=== PATIENT | female | born 1985 | race American Indian/Alaskan Native ===

== ENCOUNTER 2019-08-03 16:49 | Emergency (ER) | payer MEDICAID ==
--- NOTE | 2019-08-03 18:44 | Emergency Department Report ---
Blank Doc - Documentation Documentation: Out of lithium and zyprexa. Reports to visual hallucinations. his initial assessment/diagnostic orders/clinical plan/treatment(s) is/are subject to change based on patient's health status, clinical progression and re- assessment by fellow clinical providers in the ED. Further treatment and workup at subsequent clinical providers discretion. Patient/guardians urged not to elope from the ED as their condition may be serious if not clinically assessed and managed. Initial orders include: Plan Labs and mental health evaluation
--- NOTE | 2019-08-03 22:25 | Emergency Department Report ---
ED Psych HPI - General Chief Complaint: Psych Stated Complaint: MED REFILL Time Seen by Provider: 08/03/19 18:31 Source: patient Mode of arrival: Ambulatory - History of Present Illness Initial Comments: This is a 33-year-old female nontoxic, well nourished in appearance, no acute signs of distress presents to the ED with c/o of depression with audio and visual hallucinations. Patient stated she has been out of her medications for about 2 months. Patient stated wants to be admitted for psych hospital because it will get worse. Patient denies any homicidal ideation. Patient denies any fever, chills, nausea, vomiting, chest pain, shortness of breath, headache or stiff neck. Patient otherwise denies any symptoms. Denies any alcohol or drug consumption. Patient denies any allergies. MD Complaint: feels depressed, other (visual hallucinations) -: month(s) Associated Psychiatric Symptoms: depression, visual hallucinations History of same: Yes Quality: constant Improves With: none Worsens With: none Associated Symptoms: denies other symptoms. denies: confusion, headache, shortness of breath, nausea, vomiting, syncope, insomnia - Related Data Allergies Allergy/AdvReac Type Severity Reaction Status Date / Time No Known Allergies Allergy Unverified 08/03/19 16:52 ED Review of Systems ROS: Stated complaint: MED REFILL Other details as noted in HPI Constitutional: denies: chills, fever Eyes: denies: eye pain, eye discharge, vision change ENT: denies: ear pain, throat pain Respiratory: denies: cough, shortness of breath, wheezing Cardiovascular: denies: chest pain, palpitations Endocrine: no symptoms reported Gastrointestinal: denies: abdominal pain, nausea, diarrhea Genitourinary: denies: urgency, dysuria, discharge Musculoskeletal: denies: back pain, joint swelling, arthralgia Skin: denies: rash, lesions Neurological: denies: headache, weakness, paresthesias Psychiatric: depression, visual hallucinations. denies: anxiety, auditory hallucinations, homicidal thoughts, suicidal thoughts Hematological/Lymphatic: denies: easy bleeding, easy bruising ED Past Medical Hx - Past Medical History Hx Psychiatric Treatment: Yes (BIPOLAR SCHIZPHORENIC) - Surgical History Additional Surgical History: NONE ED Physical Exam - General Limitations: No Limitations General appearance: alert, in no apparent distress - Head Head exam: Present: atraumatic, normocephalic - Neck Neck exam: Present: normal inspection, full ROM. Absent: tenderness, meningismus, lymphadenopathy - Respiratory Respiratory exam: Present: normal lung sounds bilaterally. Absent: respiratory distress - Cardiovascular Cardiovascular Exam: Present: regular rate, normal rhythm - GI/Abdominal GI/Abdominal exam: Present: soft, normal bowel sounds. Absent: distended, tenderness - Extremities Exam Extremities exam: Present: normal inspection, full ROM - Back Exam Back exam: Present: normal inspection, full ROM. Absent: tenderness, CVA tenderness (R), CVA tenderness (L), muscle spasm, paraspinal tenderness, vertebral tenderness, rash noted - Neurological Exam Neurological exam: Present: alert, oriented X3, normal gait - Psychiatric Psychiatric exam: Present: depressed, anxious, manic. Absent: agitated, flat affect, homicidal ideation, suicidal ideation ED Course - Reevaluation(s) Reevaluation #1: 08/03/19 22:24 Patient is speaking in full sentences with no signs of distress noted. ED Medical Decision Making - Medical Decision Making This is a 33-year-old female that presents with visual hallucinations and depression. Patient is currently stable and was examined by me. Patient has been placed on 1013 and patient to be examined and evaluated by psychiatrist. Patient will remain in the ER until cleared by psychiatry. At time of admission, the patient does not seem toxic or ill in appearance. No acute signs of distress noted. Patient agrees to admission treatment plan of care. No further questions noted by the patient. Critical care attestation.: If time is entered above; I have spent that time in minutes in the direct care of this critically ill patient, excluding procedure time. ED Disposition Clinical Impression: Visual hallucinations Depression Qualifiers: Depression Type: unspecified Qualified Code(s): F32.9 - Major depressive disorder, single episode, unspecified Disposition: DC/TX-65 PSY HOSP/PSY UNIT Is pt being admited?: No Condition: Stable
[2019-08-03 23:19] LABS: Hematocrit 38.2 % (30.3-42.9); Hemoglobin 13.1 gm/dl (10.1-14.3); Mean Corpuscular HGB Conc 34 % (30-34); Mean Corpuscular Volume 80 fl (79-97); Platelet Count 306 K/mm3 (140-440); Red Blood Count 4.76 M/mm3 (3.65-5.03); Red Cell Distribution Width 15.8 % (13.2-15.2)
[2019-08-03 23:39] LABS: BUN/Creatinine Ratio 11; Blood Urea Nitrogen 8 mg/dL (7-17); Calcium 9.4 mg/dL (8.4-10.2)
[2019-08-03 23:40] LABS: Hemolysis Index 5
[2019-08-04 01:15] LABS: Bacteria,Urine 1+ /HPF (Negative); Bilirubin,Urine NEG (Negative); Blood,Urine MOD (Negative); Calcium Oxalate Crystals,Urine FEW; Color,Urine Yellow (Yellow); Mucus,Urine 2+ /HPF; Urobilinogen,Urine < 2.0 mg/dL (<2.0)
[2019-08-04 01:21] LABS: Amphetamine Screen,Urine PRESUMPTIVE NEGATIVE; Benzodiazepines Screen,Urine PRESUMPTIVE NEGATIVE; Cocaine Screen,Urine PRESUMPTIVE NEGATIVE; Methadone Screen,Urine PRESUMPTIVE NEGATIVE; Opiate Screen,Urine PRESUMPTIVE NEGATIVE
[2019-08-04 01:46] LABS: Cannabinoid Screen,Urine PRESUMPTIVE POSITIVE
[2019-08-04 03:24] LABS: Basophils % (Manual) 0 % (0.0-1.8); Total Cells Counted 100
[2019-08-04 03:25] LABS: Platelet Estimate Consistent w Auto; Target Cells 1+
--- NOTE | 2019-08-04 09:43 | Consultation ---
History of Present Illness - Reason for Consult Consult date: 08/04/19 Reason for consult: Mental Health Evaluation Requesting physician: MAIDA CALDERON - Chief Complaint Chief complaint: "I am out of my meds" - History of Present Psychiatric Illness 33 y.o. AA female who presented to the ER for AH's. Today the patient was calm, but disorganized during the assessment. She had to be redirected several times to keep her on topic. Her answers to most questions were nonsensical. She stated that she haven't been complaint with her psy medication for several months. Overall, the patient was a poor historian. She denies SI/HI's. Medications and Allergies Allergies Allergy/AdvReac Type Severity Reaction Status Date / Time No Known Allergies Allergy Unverified 08/03/19 16:52 Past psychiatric history - Past Medical History Past Medical History: No medical history Past Surgical History: No surgical history - past Psychiatric treatment and history psychiatric treatment history: Several inpatient psy settings in the past per the patient. Denies a fam psy hx. - Social History Social history: other (Unable to obtain) Mental Status Exam - Vital signs Last Vital Signs Temp 99 F 08/04/19 07:40 Pulse 86 08/04/19 07:40 Resp 18 08/04/19 07:40 BP 131/92 08/04/19 07:40 Pulse Ox 97 08/04/19 07:40 - Exam Narrative exam: MSE: Appearance: disheveled Behavior: regular eye contact Speech: regular rate and tone Mood: "okay" Affect: congruent to mood Thought Process: disorganized Thought Content: denies SI/HI's and AVH's, some delusional Motor Activity: sitting in a chair Cognition: A/O x 3 Insight: poor Judgment: poor Results Result Diagrams: 08/03/19 23:06 08/03/19 23:06 Abnormal lab results 08/03/19 08/03/19 08/03/19 Range/Units 23:06 23:06 23:06 WBC 13.2 H (4.5-11.0) K/mm3 RDW 15.8 H (13.2-15.2) % Monocytes # (Manual) 0.9 H (0.0-0.8) K/mm3 Glucose 116 H (65-100) mg/dL U Epithel Cells (Auto) (0-13.0) /HPF Salicylates < 0.3 L (2.8-20.0) mg/dL Acetaminophen (10.0-30.0) ug/mL 08/03/19 08/04/19 Range/Units 23:06 00:15 WBC (4.5-11.0) K/mm3 RDW (13.2-15.2) % Monocytes # (Manual) (0.0-0.8) K/mm3 Glucose (65-100) mg/dL U Epithel Cells (Auto) 15.0 H (0-13.0) /HPF Salicylates (2.8-20.0) mg/dL Acetaminophen < 5.0 L (10.0-30.0) ug/mL All other labs normal. Assessment and Plan Assessment and plan: Impression: Unspecified Psychosis. Cannabis Use DO. Today the patient was calm, but disorganized during the assessment. UDS was negative DDx: Bipolar DO with psychosis, Schizophrenia, Substance Induced Psychosis Recommendation/Plan: Continue 1013. Dispo: The patient was accepted at [facility] for inpatient psy services. Will staff with Dr Schuyler Galaviz.
[2019-08-04 13:22] VITALS: BP 144/99
== END 2019-08-04 16:10 ==
LOC: ED 16:49
DX: F29 Unspecified psychosis not due to a substance or known physiological condition (principal); F31.9 Bipolar disorder, unspecified; F20.9 Schizophrenia, unspecified; F12.10 Cannabis abuse, uncomplicated
CPT/HCPCS: 36415; 80048; 80307; 80320; 81001; 85007; 85025; G0480

== ENCOUNTER 2020-01-05 16:39 | Emergency (ER) | payer MEDICAID ==
--- NOTE | 2020-01-05 17:01 | Event Note ---
ED Screening Note ED Screening Note: 34 yo female brought by EMS from [facility] with possible syncope and abnormal behavior. This initial assessment/diagnostic orders/clinical plan/treatment(s) is/are subject to change based on patients health status, clinical progression and re- assessment by fellow clinical providers in the ED. Further treatment and workup at subsequent clinical providers discretion. Patient/guardian urged not to elope from the ED as their condition may be serious if not clinically assessed and managed. Initial orders include: ekg labs
[2020-01-05 17:40] LABS: Basophils # (Auto) 0.1 K/mm3 (0.0-0.1); Basophils % (Auto) 0.5 % (0.0-1.8); Eosinophils # (Auto) 0.2 K/mm3 (0.0-0.4); Eosinophils % (Auto) 1.7 % (0.0-4.3); Hematocrit 37.3 % (30.3-42.9); Hemoglobin 12.7 gm/dl (10.1-14.3); Lymphocytes # (Auto) 3.1 K/mm3 (1.2-5.4); Lymphocytes % (Auto) 28.4 % (13.4-35.0); Mean Corpuscular HGB Conc 34 % (30-34); Mean Corpuscular Volume 84 fl (79-97); Monocytes # (Auto) 1.3 K/mm3 (0.0-0.8); Monocytes % (Auto) 11.7 % (0.0-7.3); Platelet Count 226 K/mm3 (140-440); Red Blood Count 4.46 M/mm3 (3.65-5.03); Red Cell Distribution Width 15.8 % (13.2-15.2)
[2020-01-05 18:01] LABS: Alanine Aminotransferase 15 units/L (7-56); Albumin 3.5 g/dL (3.9-5); BUN/Creatinine Ratio 14; Blood Urea Nitrogen 10 mg/dL (7-17); Calcium 9.1 mg/dL (8.4-10.2); Hemolysis Index 5
--- NOTE | 2020-01-06 06:12 | Emergency Department Report ---
ED Psych HPI - General Chief Complaint: Psych Stated Complaint: SYNCOPY Time Seen by Provider: 01/05/20 23:43 Source: patient Mode of arrival: Ambulatory - History of Present Illness Initial Comments: patient was brought to ER with psychosis, not cooperating with H and P. Appears dishaveled. states she is hearing voices. no si, no hi. - Related Data Allergies Allergy/AdvReac Type Severity Reaction Status Date / Time No Known Allergies Allergy Unverified 08/03/19 16:52 ED Review of Systems ROS: Stated complaint: SYNCOPY Other details as noted in HPI Comment: Unobtainable due to pts medical conditions ED Past Medical Hx - Past Medical History Hx Psychiatric Treatment: Yes (BIPOLAR SCHIZPHORENIC) - Surgical History Past Surgical History?: Yes Additional Surgical History: NONE ED Physical Exam - General Limitations: No Limitations General appearance: alert, in no apparent distress - Head Head exam: Present: atraumatic, normocephalic - Eye Eye exam: Present: normal appearance - ENT ENT exam: Present: mucous membranes moist - Neck Neck exam: Present: normal inspection - Respiratory Respiratory exam: Present: normal lung sounds bilaterally. Absent: respiratory distress - Cardiovascular Cardiovascular Exam: Present: regular rate, normal rhythm. Absent: systolic murmur, diastolic murmur, rubs, gallop - GI/Abdominal GI/Abdominal exam: Present: soft, normal bowel sounds - Extremities Exam Extremities exam: Present: normal inspection - Back Exam Back exam: Present: normal inspection - Psychiatric Psychiatric exam: Present: depressed, agitated, anxious, flat affect - Skin Skin exam: Present: warm, dry, intact, normal color. Absent: rash ED Course Vital Signs 01/05/20 01/06/20 01/06/20 23:37 00:15 02:00 Temperature 98.2 F 98.3 F Pulse Rate 103 H 99 H Respiratory 18 18 18 Rate Blood Pressure 152/89 [Left] Blood Pressure 128/95 [Right] O2 Sat by Pulse 100 99 100 Oximetry ED Medical Decision Making - Lab Data Result diagrams: 01/05/20 17:24 01/05/20 17:24 Critical care attestation.: If time is entered above; I have spent that time in minutes in the direct care of this critically ill patient, excluding procedure time. ED Disposition Clinical Impression: Acute psychosis Disposition: DC-01 TO HOME OR SELFCARE Is pt being admited?: No Does the pt Need Aspirin: No Condition: Stable Referrals: PRIMARY CARE,MD [Primary Care Provider] - 3-5 Days
[2020-01-06 08:32] LABS: Bilirubin,Urine NEG (Negative); Blood,Urine NEG (Negative); Calcium Oxalate Crystals,Urine 1+; Color,Urine Straw (Yellow); Mucus,Urine FEW /HPF; Protein,Urine <15 mg/dL mg/dL (Negative); Urobilinogen,Urine < 2.0 mg/dL (<2.0)
[2020-01-06 08:39] LABS: Amphetamine Screen,Urine PRESUMPTIVE NEGATIVE; Benzodiazepines Screen,Urine PRESUMPTIVE NEGATIVE; Cannabinoid Screen,Urine PRESUMPTIVE NEGATIVE; Methadone Screen,Urine PRESUMPTIVE NEGATIVE; Opiate Screen,Urine PRESUMPTIVE NEGATIVE
[2020-01-06 08:42] LABS: HCG Qualitative,Urine Negative (Negative)
[2020-01-06 09:17] LABS: Cocaine Screen,Urine PRESUMPTIVE POSITIVE
[2020-01-06] MEDS ORDERED: ACETAMINOPHEN 325 MG TAB ONE (22:20)
[2020-01-06] MEDS ORDERED: ZIPRASIDONE MESYLATE 20 MG VIAL IM ONE ×2 (23:09→23:17)
[2020-01-06] MEDS ORDERED: LORazepam 2 MG/ML VIAL ONE (23:09)
[2020-01-06] MEDS ORDERED: diphenhydrAMINE 50 MG/ML VIAL ONE (23:09)
[2020-01-06] MEDS ORDERED: LORazepam 2 MG/ML VIAL IV ONE (23:17)
[2020-01-06] MEDS ORDERED: diphenhydrAMINE 50 MG/ML VIAL IV ONE (23:17)
--- NOTE | 2020-01-07 10:12 | Consultation ---
History of Present Illness - Reason for Consult Consult date: 01/07/20 Reason for consult: Psychotic - Chief Complaint Chief complaint: Paranoid - History of Present Psychiatric Illness The patient is a 34yo female with history of Schizoaffective disorder. She presents psychotic, paranoid, disorganized, confused and agitated. Patient is disorganized and unable to give reliable history. Per MENTAL HEALTH ASSESSMENT: Pt is a 34 year old female who was brought to the ED due to acting abnormally outside of a [employer]. Pt has no identified supports/family listed and the pt can provide none at this time. Pt carries a diagnosis of Schizoaffective Bipolar type. Pt has no current outpatient providers, but was previously invovled in an ACT team. Pt has not been compliant with her medications which she reports as, "Zyprexa, depakote, haldol, Seroquel, Vystaril and Cogentin." Pt has been admitted to [facility] in the past. Pt presents with altered mental state. Pt is oriented to self and situation. Pt is responding to internal visual and auditory hallucinations. Pt has poor concentration, poor attention and poor memory. Pt has angry anxious mood with congruent affect and loud pressured speech. Pt is disheveled in appearance and has poor hygiene. Pt has limited judgment and poor insight. "I'm gonna kill myself," pt yelled. Pt stated, "I try everyday to kill myself." Pt was guarded and irritable. Pt provided no information about hx of attempts. "I'm gonna kill everyone I see." Pt gave no information about how she would act on this and was not willing to provide details. Pt denies substance use; although, pt's tox was positive for cocaine. Pt reports she has no where to live; although, the pt gave the name and number of a workday manager in the area ([address]ady [phone]). Unable to verify. Pt was picked up at a [employer]. PAST PSYCHIATRIC HISTORY: Diagnoses: Schizoaffective disorder Family Psychiatric History None reported or documented SOCIAL HISTORY RACQUEL ROS: Constitutional: Negative for weight loss ENT: Negative for stridor Respiratory: Negative for cough or hemoptysis All other systems reviewed and are negative MENTAL STATUS General Appearance and Behavior: age appropriate, good eye contact and uncooperative with questioning Cooperation: Uncooperative Psychomotor Behavior: within normal limits Mood: OK Affect and affective range: Congruent with stated mood Thought Process: disorganized Thought Content: Paranoid Speech: Normal volume and Regular rate and rhythm Intellectual Functioning Average Suicidal Ideation: Denies SI Homicidal Ideation: Denies HI Impulse Control: intact Insight and Judgment: impaired insight and judgment Memory: Normal Attention: Normal Orientation: alert and oriented Diagnosis: Schizoaffective disorder, Bipolar type RECOMMENDATIONS MEDICATIONS: Depakote 500mg bid, Haldol 5mg bid and Cogentin 0.5mg bid CURRICULUM COUNSELOR: Yes DISPOSITION: Acute inpatient psychiatric hospitalization when medically stable LEGAL STATUS: 1013 FOLLOW-UP: Will follow I have reviewed this treatment plan, including potential risks and benefits of medications, with the patient and/or family members and relevant hospital providers. Please contact with any questions and/or concerns. Medications and Allergies Allergies Allergy/AdvReac Type Severity Reaction Status Date / Time No Known Allergies Allergy Verified 01/06/20 22:21 Mental Status Exam - Vital signs Last Vital Signs Temp 97.6 F 01/07/20 07:00 Pulse 101 H 01/07/20 07:00 Resp 16 01/07/20 07:00 BP 127/85 01/07/20 07:00 Pulse Ox 99 01/07/20 07:00 Results Result Diagrams: 01/05/20 17:24 01/05/20 17:24 All other labs normal.
[2020-01-07] MEDS: BENZTROPINE 1 MG TAB PO SCH ×2 (12:17→22:35)
[2020-01-07] MEDS: DIVALPROEX ER 500 MG TAB PO SCH ×2 (12:19→22:35)
[2020-01-07] MEDS: HALOPERIDOL 5 MG TAB PO SCH ×2 (12:19→22:36)
[2020-01-08] MEDS: DIVALPROEX ER 500 MG TAB PO SCH ×2 (10:40→21:51)
[2020-01-08] MEDS: HALOPERIDOL 5 MG TAB PO SCH ×2 (10:40→21:51)
[2020-01-08] MEDS: BENZTROPINE 1 MG TAB PO SCH ×2 (10:40→21:52)
--- NOTE | 2020-01-08 11:29 | Progress Note ---
Subjective - Reason for Consult Consult date: 01/08/20 Reason for consult: Psych follow up - Chief Complaint Chief complaint: I am fine SUBJECTIVE: Patient is alert, fully oriented, calm and pleasant. She admits to have been using Cocaine leading to her being confused and paranoid. She is able to think clearly today and completely denies SI/HI/AVH/Paranoia. She wants to be discharged home and she feels safe being discharged. ROS: Constitutional: Negative for weight loss ENT: Negative for stridor Respiratory: Negative for cough or hemoptysis All other systems reviewed and are negative MENTAL STATUS General Appearance and Behavior: age appropriate, good eye contact and cooperative with questioning Cooperation: cooperative Psychomotor Behavior: within normal limits Mood: OK Affect and affective range: Congruent with stated mood Thought Process: linear and organized Thought Content: normal Speech: Normal volume and Regular rate and rhythm Intellectual Functioning Average Suicidal Ideation: Denies SI Homicidal Ideation: Denies HI Impulse Control: intact Insight and Judgment: impaired insight and judgment Memory: Normal Attention: Normal Orientation: alert and oriented Diagnosis: Cocaine induced psychosis Schizoaffective disorder, Bipolar type RECOMMENDATIONS MEDICATIONS: Depakote 500mg bid, Haldol 5mg bid and Cogentin 0.5mg bid HEDIS ABSTRACTOR: n/a DISPOSITION: No indication for acute inpatient psychiatric hospitalization at present time LEGAL STATUS: 1013 rescinded FOLLOW-UP: Will follow I have reviewed this treatment plan, including potential risks and benefits of medications, with the patient and/or family members and relevant hospital providers. Please contact with any questions and/or concerns. Mental Status Exam - Vital signs Last Vital Signs Temp 97.7 F 01/08/20 08:17 Pulse 103 H 01/08/20 08:17 Resp 18 01/08/20 08:39 BP 139/97 01/08/20 08:17 Pulse Ox 100 01/08/20 08:17
[2020-01-08] MEDS ORDERED: ZIPRASIDONE MESYLATE 20 MG VIAL IM ONE ×2 (13:05→13:11)
[2020-01-08] MEDS ORDERED: WATER FOR INJ Sterile (PF) 10 ML ONE (13:05)
[2020-01-09] MEDS: LORazepam 2 MG/ML VIAL IM PRN ×2 (01:30→23:45)
[2020-01-09] MEDS: HALOPERIDOL LACTATE 5 MG/1 ML INJ IM PRN ×2 (01:30→23:45)
[2020-01-09] MEDS: HALOPERIDOL 5 MG TAB PO SCH ×2 (10:55→23:18)
[2020-01-09] MEDS: BENZTROPINE 1 MG TAB PO SCH ×2 (10:55→23:18)
[2020-01-09] MEDS: DIVALPROEX ER 500 MG TAB PO SCH ×2 (10:56→23:18)
--- NOTE | 2020-01-09 12:08 | Progress Note ---
Subjective - Reason for Consult Consult date: 01/09/20 Reason for consult: Psych follow up - Chief Complaint Chief complaint: Not fine SUBJECTIVE: Patient was agitated and required prn medications, hence her discharged was cancelled yesterday. She continues to be agitated and disorganized. Per Nursing report: pt has displayed aggressive behaviors, yelling at staff, saying threatening statements such as "bitch Ill kill you...fucking bitch shut the fuck up and leave me the fuck alone..."Pt disruptively singing at the top of her lungs belligerent lyrics as well as slammed her door closed repeatedly when staff opens doors to continue monitoring. ROS: Constitutional: Negative for weight loss ENT: Negative for stridor Respiratory: Negative for cough or hemoptysis All other systems reviewed and are negative MENTAL STATUS General Appearance and Behavior: age appropriate, good eye contact and uncooperative with questioning Cooperation: uncooperative Psychomotor Behavior: within normal limits Mood: OK Affect and affective range: Congruent with stated mood Thought Process: linear and organized Thought Content: Paranoid, AH Speech: Normal volume and Regular rate and rhythm Intellectual Functioning Average Suicidal Ideation: Denies SI Homicidal Ideation: Denies HI Impulse Control: intact Insight and Judgment: impaired insight and judgment Memory: Normal Attention: Normal Orientation: alert and oriented Diagnosis: Cocaine induced psychosis Schizoaffective disorder, Bipolar type RECOMMENDATIONS MEDICATIONS: Depakote Continue 500mg bid, Haldol 5mg bid and Cogentin 0.5mg bid [employer] M[employer] OPERATOR: n/a DISPOSITION: Acute inpatient psychiatric hospitalization LEGAL STATUS: 1013 FOLLOW-UP: Will follow Please contact with any questions and/or concerns. Mental Status Exam - Vital signs Last Vital Signs Temp 97.6 F 01/09/20 07:30 Pulse 90 01/09/20 07:30 Resp 18 01/09/20 09:39 BP 132/87 01/09/20 07:30 Pulse Ox 100 01/09/20 09:39
[2020-01-10] MEDS ORDERED: WATER FOR INJ Sterile (PF) 10 ML ONE (09:36)
[2020-01-10] MEDS ORDERED: ZIPRASIDONE MESYLATE 20 MG VIAL IM ONE ×2 (09:36→10:17)
[2020-01-10] MEDS: BENZTROPINE 1 MG TAB PO SCH ×2 (10:17→23:18)
[2020-01-10] MEDS: HALOPERIDOL 5 MG TAB PO SCH ×2 (10:17→23:18)
[2020-01-10] MEDS: DIVALPROEX ER 500 MG TAB PO SCH ×2 (10:17→23:18)
--- NOTE | 2020-01-10 11:20 | Progress Note ---
Subjective - Reason for Consult Consult date: 01/10/20 Reason for consult: Psych follow up - Chief Complaint Chief complaint: Not fine SUBJECTIVE: Patient is emotionally dysregulated, tearful, agitated and required prn medications this morning. She is disorganized and disruptive. ROS: Constitutional: Negative for weight loss ENT: Negative for stridor Respiratory: Negative for cough or hemoptysis All other systems reviewed and are negative MENTAL STATUS General Appearance and Behavior: age appropriate, good eye contact and uncooperative with questioning Cooperation: uncooperative Psychomotor Behavior: within normal limits Mood: OK Affect and affective range: Congruent with stated mood Thought Process: linear and organized Thought Content: Paranoid, AH Speech: Normal volume and Regular rate and rhythm Intellectual Functioning Average Suicidal Ideation: Denies SI Homicidal Ideation: Denies HI Impulse Control: intact Insight and Judgment: impaired insight and judgment Memory: Normal Attention: Normal Orientation: alert and oriented Diagnosis: Cocaine induced psychosis Schizoaffective disorder, Bipolar type RECOMMENDATIONS MEDICATIONS: Change Depakote to ER and increase to 750mg bid, Haldol 5mg bid and Cogentin 0.5mg bid Restart Olanzapine 5mg bid (patient was on Haldol, Olanzapine and Seroquel at home per report) EXCHANGE OPERATOR: n/a DISPOSITION: Acute inpatient psychiatric hospitalization LEGAL STATUS: 1013 FOLLOW-UP: Will follow Please contact with any questions and/or concerns. Mental Status Exam - Vital signs Last Vital Signs Temp 97.8 F 01/10/20 02:11 Pulse 100 H 01/10/20 02:11 Resp 20 01/10/20 02:11 BP 128/74 01/10/20 02:11 Pulse Ox 100 01/10/20 02:11
[2020-01-11] MEDS ORDERED: ACETAMINOPHEN 325 MG TAB PO ONE (09:42)
[2020-01-11] MEDS: BENZTROPINE 1 MG TAB PO SCH ×2 (09:55→23:00)
[2020-01-11] MEDS: DIVALPROEX ER 500 MG TAB PO SCH ×2 (09:55→23:00)
[2020-01-11] MEDS: HALOPERIDOL 5 MG TAB PO SCH ×2 (09:56→23:00)
[2020-01-11] MEDS: HALOPERIDOL LACTATE 5 MG/1 ML INJ IM PRN (10:39)
[2020-01-11] MEDS ORDERED: NICOTINE 21 MG/24 HR PATCH TD ONE (10:42)
--- NOTE | 2020-01-11 13:13 | Progress Note ---
Subjective - Reason for Consult Consult date: 01/11/20 Reason for consult: Psych follow up - Chief Complaint Chief complaint: I feel better SUBJECTIVE: Patient is calm, pleasant but still disorganized this morning. She denies SI/HI/AVH. She is compliant with meds and denies side effects. ROS: Constitutional: Negative for weight loss ENT: Negative for stridor Respiratory: Negative for cough or hemoptysis All other systems reviewed and are negative MENTAL STATUS General Appearance and Behavior: age appropriate, good eye contact and uncooperative with questioning Cooperation: uncooperative Psychomotor Behavior: within normal limits Mood: OK Affect and affective range: Congruent with stated mood Thought Process: linear and organized Thought Content: Paranoid, AH Speech: Normal volume and Regular rate and rhythm Intellectual Functioning Average Suicidal Ideation: Denies SI Homicidal Ideation: Denies HI Impulse Control: intact Insight and Judgment: impaired insight and judgment Memory: Normal Attention: Normal Orientation: alert and oriented Diagnosis: Cocaine induced psychosis Schizoaffective disorder, Bipolar type RECOMMENDATIONS MEDICATIONS: Continue Depakote ER 750mg bid, Haldol 5mg bid and Cogentin 0.5mg bid Continue Olanzapine 5mg bid (patient was on Haldol, Olanzapine and Seroquel at home per report) EQUINE VET: n/a DISPOSITION: Acute inpatient psychiatric hospitalization LEGAL STATUS: 1013 FOLLOW-UP: Will follow Please contact with any questions and/or concerns. Mental Status Exam - Vital signs Last Vital Signs Temp 97.5 F L 01/11/20 11:29 Pulse 98 H 01/11/20 11:29 Resp 18 01/11/20 11:29 BP 127/92 01/11/20 11:29 Pulse Ox 99 01/11/20 11:29
[2020-01-12 02:11] VITALS: BP 139/94
[2020-01-12] MEDS: BENZTROPINE 1 MG TAB PO SCH (12:02)
[2020-01-12] MEDS: HALOPERIDOL 5 MG TAB PO SCH (12:03)
[2020-01-12] MEDS: DIVALPROEX ER 500 MG TAB PO SCH (12:03)
== END 2020-01-12 12:56 ==
LOC: ED 16:39 → EEVIPCON 16:39 → ED 01-12 12:56
DX: F25.0 Schizoaffective disorder, bipolar type (principal); F14.959 Cocaine use, unspecified with cocaine-induced psychotic disorder, unspecified; Z79.899 Other long term (current) drug therapy
CPT/HCPCS: 36415; 80053; 80307; 81001; 81025; 85025; 93005; 93010; 99285; J1200; J1630; J2060; J3486; 80320; 96372; 96374; 96375; G0480; Q0177